=== PATIENT | female | born 1960 | race Caucasian/White ===

== ENCOUNTER → 2025-01-07 19:33 | Outpatient (REF) | payer OTHER, SELFPAY | LOC: MRI 3T 19:33 | PROVIDERS: ATTENDING PHYSICIAN Anesthesiology; FAMILY PHYSICIAN Family Medicine | DX: M54.12 Radiculopathy, cervical region (principal) | CPT/HCPCS: 72141 ==

== ENCOUNTER 2025-01-14 06:34 | Day surgery (SDC) | payer OTHER, SELFPAY | END 2025-01-14 10:14 | disposition home or self-care (01) | LOC: GI 06:34 | PROVIDERS: ATTENDING PHYSICIAN Internal Medicine; FAMILY PHYSICIAN Family Medicine | DX: Z12.11 Encounter for screening for malignant neoplasm of colon (principal); D12.0 Benign neoplasm of cecum; D12.2 Benign neoplasm of ascending colon; Z86.0100 Personal history of colon polyps, unspecified; Z98.0 Intestinal bypass and anastomosis status | CPT/HCPCS: 45385; 45380; 88305 ==

== ENCOUNTER → 2025-07-02 18:13 | Outpatient (REF) | payer OTHER, SELFPAY | LOC: WDC 18:13 | PROVIDERS: ATTENDING PHYSICIAN Family Medicine | DX: Z12.31 Encounter for screening mammogram for malignant neoplasm of breast (principal) | CPT/HCPCS: 77063; 77067 ==